=== PATIENT | male | born 1955 | race Caucasian/White ===

== ENCOUNTER 2019-07-02 00:16 | Inpatient (IN) | payer MEDICAID ==
[~2019-07-02] VITALS: Ht 170.2 cm; Wt 96.2 kg
[~2019-07-02 00:16] MED LIST: ASPI81CH43 PO; ATOR20TA50 PO; CAR3125T PO; FURO1TAB33 PO; POTA8TAB2 PO; SACU1TAB PO; TICA90TA PO
[2019-07-02 01:55] LABS: Basophils # (auto) 0 uL; Basophils % (auto) 0.4 % (0.0-2.0); Eosinophils # (auto) 0 uL; Eosinophils % (auto) 0.4 % (0.0-7.0); Hematocrit 39.3 % (41.0-53.0); Hemoglobin 12.9 g/dL (13.5-17.5); Lymphocytes # (auto) 1.2 uL; Mean Corpuscular Hgb Conc. 32.8 g/dL (32.0-36.0); Mean Corpuscular Volume 94.6 fL (80.0-100.0); Monocytes # (auto) 1.4 uL; Monocytes % (auto) 12.4 % (0.0-12.0); Neutrophils # (auto) 8.4 uL; Neutrophils % (auto) 75.8 % (37.0-80.0); Nucleated Red Blood Cells % 0.1 %; Platelet Count (auto) 177 10^3/uL (140-450); Red Blood Cells 4.15 10^6/uL (4.5-5.90); White Blood Cell 11.1 10^3/uL (4.4-10.8)
[2019-07-02 02:18] LABS: Albumin 3.3 g/dL (3.4-5.0); Calcium 8.5 mg/dL (8.5-10.1); Potassium 3.8 mmol/L (3.5-5.1)
[2019-07-02 02:21] LABS: BUN/Creatinine Ratio 21.6
[2019-07-02 02:28] LABS: Bilirubin, Total 0.9 mg/dL (0.2-1.0); Total Protein 6.5 g/dL (6.4-8.2)
[2019-07-02] MEDS ORDERED: ALBUTEROL SULF 2.5 MG/0.5ML(0.5%) NEB SOLN NEB ONE (03:15)
[2019-07-02] MEDS ORDERED: IPRATROPIUM BROM 0.5 MG/2.5ML INH SOL NEB ONE (03:15)
[2019-07-02] MEDS ORDERED: FUROSEMIDE 20 MG/2 ML VIAL IV ONE (03:15)
[2019-07-02] MEDS ORDERED: LEVOFLOXACIN 250MG 50 ML IV ONE (04:00)
[2019-07-02 04:30] LABS: Urine Amorphous Crystal FEW /hpf (None Seen); Urine Bacteria FEW /hpf (None Seen); Urine Blood Negative /uL (Negative); Urine Hyaline Cast FEW /lpf (0 - 2); Urine Mucus FEW (None Seen); Urine Specific Gravity 1.025 (1.001-1.035); Urine WBC 1 /hpf (0 - 3)
[2019-07-02 04:43] LABS: Alcohol, Urine < 3.0 mg/dL (0-5); Amphetamine Screen, Urine NEGATIVE (NEGATIVE); Barbiturate Scree,Urine NEGATIVE (NEGATIVE); Benzodiazephine Screen, Urine NEGATIVE (NEGATIVE); Cannabinoid Screen, Urine NEGATIVE (NEGATIVE); Cocaine Screen, Urine NEGATIVE (NEGATIVE); Opiate Scree,Urine NEGATIVE (NEGATIVE); Phencyclidine Screen, Urine NEGATIVE (NEGATIVE)
[2019-07-02] MEDS ORDERED: ENOXAPARIN SOD 100 MG/1 ML SYRINGE SC ONE (04:45)
[2019-07-02] MEDS ORDERED: NITROGLYCERIN 0.4 MG SL TAB SL PRN (04:45)
[2019-07-02] MEDS ORDERED: ONDANSETRON HCL 4 MG/2 ML VIAL IV PRN (04:45)
[2019-07-02] MEDS ORDERED: MORPHINE SULF INJ 2 MG/ML SYRINGE 1ML IV PRN (04:45)
[2019-07-02] MEDS ORDERED: ALBUTEROL SULF 2.5 MG/0.5ML(0.5%) NEB SOLN NEB PRN (05:15)
[2019-07-02] MEDS: FUROSEMIDE 20 MG/2 ML VIAL IV SCH ×2 (06:08→17:36)
--- NOTE | 2019-07-02 07:58 | NUR ---
Telemetry admit from ER BALDO PELAYO admitted to Telemetry unit. Patient oriented to Tj Benz, primary RN, unit, room, bed, and unit policies regarding patient care and visiting hours. Patient now on continuous telemetry monitoring, tele box #[id number] and telemetry reading on arrival to unit is [id number]. Patient placed on bedside oxygen, weighed by bedscale and encouraged to call if they need something. All questions and concerns addressed, patient verbalized understanding.
[2019-07-02 09:00] VITALS: BP 110/75
[2019-07-02] MEDS: TICAGRELOR 90 MG TAB PO SCH ×2 (10:02→21:23)
[2019-07-02] MEDS: SACUBITRIL-VALSARTAN 24mg/26mg TAB PO SCH ×2 (10:02→21:24)
[2019-07-02] MEDS: PANTOPRAZOLE 40 MG TAB PO SCH (10:02)
[2019-07-02] MEDS: LEVOFLOXACIN 500MG 100 ML IV SCH (10:02)
[2019-07-02] MEDS: ASPirin 81 mg TAB PO SCH (10:03)
--- NOTE | 2019-07-02 11:12 | NUR ---
RT NOTE: NO TX INDICATED AT THIS TIME. NO SIGNS OF RESPIRATORY DISTRESS NOTED. LUNG SOUNDS WERE CLEAR T/O EXCEPT TO THE RIGHT LUNG BASE WHERE THERE WERE CRACKLES. ON RA SPO2 98 HR 78 RR 18. PT AWARE TO CALL FOR TX IF NEED ARISES. WILL CONTINUE TO MONITOR.
--- NOTE | 2019-07-02 12:44 | NUR ---
Left a message to Dr. Shukla asking if patient is OK to have diet orders. Waiting for call back.
--- NOTE | 2019-07-02 12:54 | NUR ---
Orders received from Dr. Shukla,patient may have 2 grams Na diet.
[2019-07-02 13:00] VITALS: BP 113/79
[2019-07-02 13:34] VITALS: BP 110/75
--- NOTE | 2019-07-02 14:20 | NUR ---
Dr. Shukla at bedside, patient is advised. Orders received.
[2019-07-02] MEDS ORDERED: POTASSIUM CHL 20 Meq TABLET PO ONE (14:30)
[2019-07-02] MEDS ORDERED: FUROSEMIDE 40 MG/4 ML VIAL IV ONE (14:30)
[2019-07-02 17:00] VITALS: BP 109/72
--- NOTE | 2019-07-02 18:59 | NUR ---
RESP NOTE: PRN MED NEB ASSESSMENT. PT DENIES SOB NO DISTRESS NOTED AT THIS TIME. POX 96% ON RA. HR 101 RR 20. BS ARE CLEAR AND DIMINISHED. TX NOT GIVEN.
--- NOTE | 2019-07-02 19:30 | NUR ---
OPENING SHIFT NOTE Pt in bed alert and oriented x 4 verbally coherent, able to make needs known. Pt's respiration even and unlabored, denies pain and discomfort at this time. Plan of care discussed, patient verbalized understanding. Family at bedside.
[2019-07-02] MEDS ORDERED: ATORVASTATIN 20 MG TAB PO SCH (22:00)
[2019-07-02 23:28] VITALS: BP 101/70
[2019-07-03 05:45] VITALS: BP 106/62
[2019-07-03] MEDS: FUROSEMIDE 20 MG/2 ML VIAL IV SCH ×2 (06:13→17:51)
[2019-07-03 06:28] LABS: Basophils # (auto) 0 uL; Basophils % (auto) 0.6 % (0.0-2.0); Eosinophils # (auto) 0.3 uL; Eosinophils % (auto) 3.8 % (0.0-7.0); Hematocrit 39.7 % (41.0-53.0); Hemoglobin 13.4 g/dL (13.5-17.5); Lymphocytes # (auto) 0.8 uL; Lymphocytes % (auto) 10.9 % (10.0-50.0); Mean Corpuscular Hemoglobin 31.5 pg (28.0-32.0); Mean Corpuscular Hgb Conc. 33.8 g/dL (32.0-36.0); Monocytes # (auto) 0.9 uL; Monocytes % (auto) 12.6 % (0.0-12.0); Neutrophils # (auto) 5.1 uL; Neutrophils % (auto) 72.1 % (37.0-80.0); Nucleated Red Blood Cells % 0.1 %; Platelet Count (auto) 143 10^3/uL (140-450); Red Blood Cells 4.27 10^6/uL (4.5-5.90); Red Cell Distribution Width 14.9 % (11.8-14.3); White Blood Cell 7.1 10^3/uL (4.4-10.8)
[2019-07-03 06:44] LABS: BUN/Creatinine Ratio 17.5; Calcium 8.2 mg/dL (8.5-10.1); Potassium 3.5 mmol/L (3.5-5.1)
--- NOTE | 2019-07-03 08:00 | NUR ---
Opening Shift Note Assumed care of patient, awake and alert. No S/S of distress/SOB or pain. Instructed on POC and to call for assist PRN, will continue to monitor for changes Q1hr and PRN.
[2019-07-03 09:00] VITALS: BP 103/69
[2019-07-03] MEDS: TICAGRELOR 90 MG TAB PO SCH (09:43)
[2019-07-03] MEDS: ASPirin 81 mg TAB PO SCH (09:43)
[2019-07-03] MEDS: PANTOPRAZOLE 40 MG TAB PO SCH (09:43)
[2019-07-03] MEDS: SACUBITRIL-VALSARTAN 24mg/26mg TAB PO SCH (09:43)
[2019-07-03] MEDS: LEVOFLOXACIN 500MG 100 ML IV SCH (09:43)
--- NOTE | 2019-07-03 11:42 | NUR ---
RT NOTE: WENT TO PTS ROOM TO ASSESS FOR PRN BREATHING TX, PT SITTING UP IN BED, NO S/S OF SOB. HR 95, RR 16, SPO2 96% ON RA, WILL CONTINUE TO MONITOR PT.
[2019-07-03 13:00] VITALS: BP 102/64
--- NOTE | 2019-07-03 16:46 | NUR ---
Discharge planning per consult, patient received orders to resume home health. Referral faxed to [facility] (previously on services as 06.25.19) and per Belen at [facility], they will resume services within 24-48 hours of discharge. Addendum: 07/03/19 at 1648 by ESTHER DOYLE SS Amended: Links added. Addendum: 07/03/19 at 1653 by ESTHER YANIRA SS Patient did not want hospice services at this time and the [facility] program does not services the [place] area. Patient opted to resume services with [facility]. Addendum: 07/03/19 at 1657 by ESTHER DOYLE SS Patient advised he will be in [place] until Saturday, and will then return to [place]. Lamont Mcginnis was notified.
--- NOTE | 2019-07-03 16:47 | NUR ---
assessment Patient is a 63 year old male who is alert and oriented. Prior to admission patient lived home alone and functioned independently. Patient is on service with [facility] health. Patient will need to resume home health on discharge. Patient informed me he will return home with his daughter on discharge if he needs to. Patients PCP is Dr Cabello. Patient verbalized understanding and agreed to discharge plan home. Addendum: 07/06/19 at 1650 by Shagufta KISER Amended: Links added.
[2019-07-03 17:18] VITALS: BP 119/71
[2019-07-03 18:24] VITALS: BP 119/71
--- NOTE | 2019-07-03 18:55 | NUR ---
IV removed, catheter intact, pressure dressing applied. Telemetry box returned to [facility]. Patient is for discharge, discharge papers signed by patient and was handed to him. Waiting for ride to go home. Gave reports to film processing shift supervisor RN.
--- NOTE | 2019-07-03 19:18 | NUR ---
Discharge instructions given as ordered. Encourage to follow up with PMD as instructed. All questions and concerns addressed. Patient verbalized understanding. Medication reconciliation form completed and copy given to patient. IV removed with catheter intact, pressure dressing applied. Telemetry unit returned to [facility]. Patient taken to vehicle via wheelchair with all personal belongings, accompanied by staff and family member. No distress noted at time of departure.
[2019-08-03] MEDS ORDERED: LISI2.5T47 PO (09:17)
== END 2019-07-03 19:17 | disposition home health service (06) | DRG 194 ==
LOC: ER 00:23 → TELE 00:24 → TELE-EAST 07:58
PROVIDERS: ADMIT Nurse Practitioner; ATTEND Internal Medicine Cardiovascular Disease
DX: I13.0 Hypertensive heart and chronic kidney disease with heart failure and stage 1 through stage 4 chronic kidney disease, or unspecified chronic kidney disease (principal); I22.2 Subsequent non-ST elevation (NSTEMI) myocardial infarction; J18.9 Pneumonia, unspecified organism; I42.0 Dilated cardiomyopathy; N18.3 Chronic kidney disease, stage 3 (moderate); Z95.1 Presence of aortocoronary bypass graft; I50.23 Acute on chronic systolic (congestive) heart failure; E78.5 Hyperlipidemia, unspecified; I25.10 Atherosclerotic heart disease of native coronary artery without angina pectoris; J20.9 Acute bronchitis, unspecified; Z91.19 Patient's noncompliance with other medical treatment and regimen; I25.2 Old myocardial infarction; Z82.49 Family history of ischemic heart disease and other diseases of the circulatory system; Z95.5 Presence of coronary angioplasty implant and graft; Z91.013 Allergy to seafood; I21.9 Acute myocardial infarction, unspecified
CPT/HCPCS: 36415; 71045; 80048; 80053; 80307; 81001; 83605; 83880; 84484; 85025; 85379; 87040; 87081; 93005; 94640; 96365; 96372; 96375; G0378; J1956

== ENCOUNTER → 2019-08-11 | Outpatient (CLI) | payer MEDICAID ==
[~2019-08-11] MED LIST changes: +CARV6.25 PO; +LISI2.5T47 PO
[2019-08-11 13:00] VITALS: BP 103/78
--- NOTE | 2019-08-11 13:00 | NUR ---
CHF CLINIC Discharge Instructions See e-MAR for any mediations given with this visit. Patient education given on disease process. Patient verbalized understanding. Previous labs reviewed. Patient discharged in stable condition with after care instructions and follow up appointment. NOTE 6MWT PERFORMED BY MARKUS OLMEDO EKG DONE BY KRISTI BAJWA CARDIODYNAMICS PERFORMED BY MEGHAN OLMEDO AND REVIEWED BY FIONA BAJWA PATIENT MEDICATION LISINOPRIL STOPPED AND PATIENT STARTED ON ENTRESTO 24/26MG DAILY AT BEDTIME.
[2019-08-11 16:10] LABS: Albumin 3.5 g/dL (3.4-5.0); Calcium 8.9 mg/dL (8.5-10.1); Magnesium 2.7 mg/dL (1.6-2.6); Potassium 4.1 mmol/L (3.5-5.1)
[2019-08-11 16:12] LABS: BUN/Creatinine Ratio 19.5; Bilirubin, Total 0.5 mg/dL (0.2-1.0); Total Protein 7.1 g/dL (6.4-8.2)
[2019-08-11 16:21] LABS: Basophils # (auto) 0 uL; Basophils % (auto) 0.9 % (0.0-2.0); Eosinophils # (auto) 0.1 uL; Eosinophils % (auto) 2.7 % (0.0-7.0); Hematocrit 37.5 % (41.0-53.0); Hemoglobin 12.8 g/dL (13.5-17.5); Mean Corpuscular Hemoglobin 31.5 pg (28.0-32.0); Mean Corpuscular Hgb Conc. 34.2 g/dL (32.0-36.0); Monocytes # (auto) 0.6 uL; Monocytes % (auto) 10.8 % (0.0-12.0); Neutrophils # (auto) 3.6 uL; Neutrophils % (auto) 66.6 % (37.0-80.0); Nucleated Red Blood Cells % 0.1 %; Platelet Count (auto) 165 10^3/uL (140-450); Red Blood Cells 4.08 10^6/uL (4.5-5.90); Red Cell Distribution Width 14.4 % (11.8-14.3); White Blood Cell 5.4 10^3/uL (4.4-10.8)
== END | disposition home or self-care (01) ==
LOC: CHF HDHVI 10:31
PROVIDERS: ATTEND Internal Medicine Cardiovascular Disease
DX: C61 Malignant neoplasm of prostate (principal); I50.9 Heart failure, unspecified; E29.1 Testicular hypofunction; K90.9 Intestinal malabsorption, unspecified; E03.9 Hypothyroidism, unspecified; D64.9 Anemia, unspecified; R94.31 Abnormal electrocardiogram [ECG] [EKG]; N18.3 Chronic kidney disease, stage 3 (moderate); Z79.899 Other long term (current) drug therapy
CPT/HCPCS: 36415; 80053; 82306; 83036; 83735; 83880; 84153; 84403; 84443; 85025; 93005; 93701; 94618; G0463

== ENCOUNTER → 2019-08-25 | Outpatient (CLI) | payer MEDICAID ==
[~2019-08-25] MED LIST changes: +CYANOCOBALAMIN (B-12) 1000 MCG/1 ML VIAL IM ONE; +CYANOCOBALAMIN (B-12) 1000 MCG/1 ML VIAL ONE
--- NOTE | 2019-08-25 09:08 | NUR ---
CHF PT ARRIVED AT THE CHF CLINIC FOR THERAPY A/O X 4 0 DISTRESS VSS
--- NOTE | 2019-08-25 10:10 | NUR ---
CHF MED RECONCILIATION PATIENT IS ON ENTRESTO 1 TAB IN AM AND COREG 3.125
[2019-08-25 10:15] VITALS: BP 97/63
--- NOTE | 2019-08-25 10:15 | NUR ---
Discharge Instructions See e-MAR for any mediations given with this visit. Patient education given on disease process. Patient verbalized understanding. Previous labs reviewed. Patient discharged in stable condition with after care instructions and follow up appointment. MEDICATIONS VITAMIN B12 IM LOT # [id number] EXP 11/06
[2019-08-25 12:27] LABS: Basophils # (auto) 0 uL; Basophils % (auto) 0.5 % (0.0-2.0); Eosinophils # (auto) 0.2 uL; Eosinophils % (auto) 2.6 % (0.0-7.0); Hematocrit 39.8 % (41.0-53.0); Hemoglobin 13.4 g/dL (13.5-17.5); Lymphocytes # (auto) 0.8 uL; Lymphocytes % (auto) 12.1 % (10.0-50.0); Mean Corpuscular Hemoglobin 31.7 pg (28.0-32.0); Mean Corpuscular Hgb Conc. 33.7 g/dL (32.0-36.0); Mean Corpuscular Volume 94.1 fL (80.0-100.0); Monocytes # (auto) 0.6 uL; Monocytes % (auto) 9.2 % (0.0-12.0); Neutrophils # (auto) 4.7 uL; Neutrophils % (auto) 75.6 % (37.0-80.0); Platelet Count (auto) 146 10^3/uL (140-450); Red Blood Cells 4.23 10^6/uL (4.5-5.90); Red Cell Distribution Width 15.1 % (11.8-14.3); White Blood Cell 6.2 10^3/uL (4.4-10.8)
[2019-08-25 12:39] LABS: Albumin 3.4 g/dL (3.4-5.0); Potassium 3.8 mmol/L (3.5-5.1)
[2019-08-25 12:49] LABS: Bilirubin, Total 0.7 mg/dL (0.2-1.0); Calcium 8.8 mg/dL (8.5-10.1); Total Protein 7.1 g/dL (6.4-8.2)
== END | disposition home or self-care (01) ==
LOC: CHF HDHVI 09:06
PROVIDERS: ATTEND Internal Medicine Cardiovascular Disease
DX: I13.0 Hypertensive heart and chronic kidney disease with heart failure and stage 1 through stage 4 chronic kidney disease, or unspecified chronic kidney disease (principal); I50.42 Chronic combined systolic (congestive) and diastolic (congestive) heart failure; N18.3 Chronic kidney disease, stage 3 (moderate); R53.83 Other fatigue; I25.10 Atherosclerotic heart disease of native coronary artery without angina pectoris; I25.2 Old myocardial infarction; E78.5 Hyperlipidemia, unspecified; D64.9 Anemia, unspecified; E03.9 Hypothyroidism, unspecified; Z95.1 Presence of aortocoronary bypass graft; Z79.899 Other long term (current) drug therapy
CPT/HCPCS: 36415; 80053; 80061; 83880; 85025; 96372; G0463; J3420

== ENCOUNTER 2019-08-27 23:59 | Inpatient (IN) | payer MEDICAID ==
[~2019-08-27] VITALS: Ht 170.2 cm; Wt 167.2 kg
[~2019-08-27 23:59] MED LIST changes: -CARV6.25 PO; -CYANOCOBALAMIN (B-12) 1000 MCG/1 ML VIAL IM ONE; -CYANOCOBALAMIN (B-12) 1000 MCG/1 ML VIAL ONE; -SACU1TAB PO
[2019-08-28 00:46] LABS: Basophils # (auto) 0.1 uL; Basophils % (auto) 0.7 % (0.0-2.0); Eosinophils # (auto) 0.2 uL; Eosinophils % (auto) 2.3 % (0.0-7.0); Hematocrit 41.2 % (41.0-53.0); Hemoglobin 13.9 g/dL (13.5-17.5); Lymphocytes # (auto) 1.1 uL; Lymphocytes % (auto) 14.7 % (10.0-50.0); Mean Corpuscular Hemoglobin 31.9 pg (28.0-32.0); Mean Corpuscular Hgb Conc. 33.7 g/dL (32.0-36.0); Mean Corpuscular Volume 94.9 fL (80.0-100.0); Monocytes # (auto) 0.8 uL; Monocytes % (auto) 10.2 % (0.0-12.0); Neutrophils # (auto) 5.5 uL; Neutrophils % (auto) 72.1 % (37.0-80.0); Nucleated Red Blood Cells % 0.1 %; Platelet Count (auto) 177 10^3/uL (140-450); Red Blood Cells 4.34 10^6/uL (4.5-5.90); White Blood Cell 7.6 10^3/uL (4.4-10.8)
[2019-08-28 01:01] LABS: INR 1.06 (0.9-1.15); Partial Thromboplastin Time 28.2 sec (23.64-32.05)
[2019-08-28 01:03] LABS: Albumin 3.3 g/dL (3.4-5.0); BUN/Creatinine Ratio 20.2; Calcium 8.7 mg/dL (8.5-10.1); Potassium 4.9 mmol/L (3.5-5.1)
[2019-08-28] MEDS ORDERED: PROMETHAZINE HCL 25 MG/ML 1ML IV ONE (03:45)
[2019-08-28] MEDS ORDERED: FUROSEMIDE 20 MG/2 ML VIAL IV ONE (07:30)
[2019-08-28] MEDS ORDERED: MORPHINE SULF INJ 2 MG/ML SYRINGE 1ML IV PRN (08:30)
[2019-08-28] MEDS ORDERED: NITROGLYCERIN 0.4 MG SL TAB SL PRN (08:30)
[2019-08-28 09:18] LABS: Alcohol, Urine < 3.0 mg/dL (0-5); Amphetamine Screen, Urine NEGATIVE (NEGATIVE); Barbiturate Scree,Urine NEGATIVE (NEGATIVE); Benzodiazephine Screen, Urine NEGATIVE (NEGATIVE); Cannabinoid Screen, Urine NEGATIVE (NEGATIVE); Cocaine Screen, Urine NEGATIVE (NEGATIVE); Opiate Scree,Urine NEGATIVE (NEGATIVE); Phencyclidine Screen, Urine NEGATIVE (NEGATIVE)
[2019-08-28] MEDS ORDERED: FUROSEMIDE 20 MG TAB PO SCH ×2 (10:00→18:00)
[2019-08-28] MEDS: NITROGLYCERIN 0.2MG/HR TOPICAL PATCH TD SCH (10:00)
[2019-08-28 10:30] VITALS: BP 112/71
--- NOTE | 2019-08-28 10:30 | NUR ---
RECIEVED PATIENT FROM ER. RECIEVED REPORT FROM GARETT JOSEPH. PATIENT RESTING IN BED. NO S/S OF DISTRESS NOTED AT THIS TIME. PATIENT ORIENTED TO GARETT WALKER AND HOSPITAL ROOM INCLUDING BED, CALL LIGHT, AND HOSPITAL CPOLICY. PATIENT VERBALZIED UNDERSTANDING. PATIENT ON TELE MONITOR 66. PATIENT DENIES ANY CHEST PAIN AT THIS MOMENT. PATIENT UPDATED ON POC. ALL QUESTIONS ANSWERED. BED IN LOWEST LOCKED POSITION WITH CALL LIGHT WITHIN REACH.
[2019-08-28] MEDS ORDERED: ENOXAPARIN SOD 80 MG/0.8ML SYRINGE SC ONE (10:45)
[2019-08-28] MEDS: POTASSIUM CHLORIDE 8 MEQ TAB PO SCH ×2 (11:29→21:26)
[2019-08-28] MEDS: CARVEDILOL 3.125 MG TAB PO SCH (11:30)
[2019-08-28] MEDS: TICAGRELOR 90 MG TAB PO SCH ×2 (11:30→21:25)
[2019-08-28] MEDS: ENALAPRIL MALEATE 2.5 MG TAB PO SCH (11:31)
[2019-08-28] MEDS: ASPirin 81 mg TAB PO SCH (11:31)
[2019-08-28] MEDS ORDERED: SACU1TAB PO (12:47)
[2019-08-28 13:00] VITALS: BP 112/71
--- NOTE | 2019-08-28 13:30 | NUR ---
BRIGITTE ANDERSON REGARDING ELEVATED TROPONIN. AWAITING CALL BACK.
--- NOTE | 2019-08-28 14:10 | NUR ---
Cecilio ANDERSON AT BEDSIDE.
[2019-08-28] MEDS: SODIUM CHLOR 0.9% PF (SALINE LOCK) 10ML VIAL/SYR IV SCH ×2 (14:34→22:56)
[2019-08-28] MEDS ORDERED: INFLUENZA QUAD 2019-2020 0.5ml SYRG IM ONE (16:00)
--- NOTE | 2019-08-28 19:00 | NUR ---
CARE ENDORSED TO RN BERNICE. PATIENT IN NO S/S OF DISTRESS AT THIS TIME.
--- NOTE | 2019-08-28 19:30 | NUR ---
Opening Shift Note Assumed care of patient, awake and alert x4. Patient denies pain at this time. No S/S of distress or shortness of breath noted at this time. Instructed on POC and to callfor assist PRN, will continue to monitor for changes Q1hr and PRN. Addendum: 08/28/19 at 2052 by BERNICE CASTRO RN RN Opening Shift Note Assumed care of patient, awake and alert x4. Patient denies pain at this time. No S/S of distress or shortness of breath noted at this time. Instructed on plan of care and to call for assistance as needed. Bed is locked in lowest position, side rails x 2 are up, call light is within reach, and bed alarm is on.
[2019-08-28] MEDS: ATORVASTATIN 20 MG TAB PO SCH (21:29)
[2019-08-28] MEDS ORDERED: FURO1TAB33 PO ×2 (21:33)
[2019-08-28] MEDS ORDERED: CARV6.25 PO ×2 (21:33)
[2019-08-28 22:00] VITALS: BP 107/62
--- NOTE | 2019-08-28 22:12 | NUR ---
HOSPITALIST PAGED RE: NIGHT TIME MEDICATION Hospitalist paged regarding night time medication. Patient reports he takes Lasix 20mg PO in the morning and in the evening at home. Patient is requesting his night time Lasix. Awaiting call back.
--- NOTE | 2019-08-28 22:50 | NUR ---
HOSPITALIST RETURNED CALL RE: EVENING MEDICATION Notified SHOSHANA Humphries that patient reports he takes Lasix 20mg PO BID at home and is requesting his evening dose. Received orders from SHOSHANA Humphries to resume patients Lasix 20mg PO tonight. Order read back and verified. Will carry out order as received.
[2019-08-28] MEDS ORDERED: FUROSEMIDE 20 MG TAB PO ONE (23:00)
--- NOTE | 2019-08-29 02:12 | NUR ---
Hospitalist paged re: shortness of breath Hospitalist paged regarding shortness of breath. Patient is complaining of shortness of breath. Patients SPO2: is 95% on room air, lungs are clear to auscultation, and patient noted to have non pitting edema to lower extremities. Patient was given Lasix 20mg PO at approximately 2315. Patients urine output since 2300 has been 100mls. Awaiting call back.
[2019-08-29] MEDS ORDERED: ALBUTEROL SULF 2.5 MG/0.5ML(0.5%) NEB SOLN NEB PRN (02:45)
--- NOTE | 2019-08-29 02:45 | NUR ---
HOSPITALIST RETURNED CALL RE: SHORTNESS OF BREATH Notified HAND CIGAR MAKER Humphries that patient is complaining of shortness of breath. HAND CIGAR MAKER Humphries made aware that patients lungs are clear to auscultation, non-pitting edema noted to bilateral lower extremities, and patients SPO2 is 95% on room air. Orders for Albuterol 2.5mg every 6 hours as needed for shortness of breath received. Order read back and verified. Will carry out order as received.
[2019-08-29 02:57] VITALS: BP 100/62
--- NOTE | 2019-08-29 03:17 | NUR ---
AT BEDSIDE FOR PRN MED NEB ASSESSMENT. NO DISTRESS NOTED. PT DOES STATE HE FEELS SOB BUT DUE IT IS DUE TO HIS FLUID OVERLOAD. RA POX 97% HR 68 RN AT BEDSIDE BS ARE MOSTLY CLEAR BUT PT DOES HAVE VERY FAINT CRACKLES IN THE BASES AUDIBLE ON INSPIRATION. PT DECLINES MEDNEB AND STATES UNDERSTANDING THAT HE MAY PAGE IF HE WOULD LIKE ONE.
--- NOTE | 2019-08-29 04:00 | NUR ---
HOSPITALIST PAGED RE: SHORTNESS OF BREATH Hospitalist paged regarding shortness of breath. Patient reports he is having a hard time breathing. Patients lung sounds upon auscultation are clear for bilateral upper lobes and crackles for bilateral lower lobes. Patients SPO2: is 95% on room air. Awaiting call back.
--- NOTE | 2019-08-29 04:38 | NUR ---
HOSPITALIST RETURNED CALL RE: SHORTNESS OF BREATH Hospitalist returned call re: shortness of breath. Notified TECHNICIAN CHEMICAL CLEANING Humphries that patient continues to complain of shortness of breath and that lung sounds upon auscultation are clear for upper bilateral lobes and crackles for lower bilateral lobes. TECHNICIAN CHEMICAL CLEANING Humphries aware that patients SPO2 is 95% on room air and patient refused breathing treatment. Orders for Lasix 40mg IV now, hold scheduled 0600 Lasix 20mg PO, and order for chest x-ray received. Order read back and verified. Will carry out orders as received.
[2019-08-29] MEDS ORDERED: FUROSEMIDE 40 MG/4 ML VIAL IV ONE (04:45)
[2019-08-29] MEDS: FUROSEMIDE 20 MG TAB PO SCH ×2 (05:19→18:17)
[2019-08-29] MEDS: SODIUM CHLOR 0.9% PF (SALINE LOCK) 10ML VIAL/SYR IV SCH ×2 (05:20→14:47)
[2019-08-29 05:46] VITALS: BP 102/73
--- NOTE | 2019-08-29 07:30 | NUR ---
OPENING SHIFT NOTE PATIENT RESTING IN BED HIGH FOWLERS. RESPIRATIONS EVEN AND UNLABORED. NO S/S OF DISTRESS NOTED AT THIS TIME. PATIENT DENIES ANY CP OR SOB AT THIS TIME. PATIENT UPDATED ON POC. ALL QUESTIONS ANSWERED. BED IN LOWEST LOCKED POSITION WITH CALL LIGHT WITHIN REACH. WILL CONTINUE CARE.
[2019-08-29 09:00] VITALS: BP 106/67
[2019-08-29] MEDS: NITROGLYCERIN 0.2MG/HR TOPICAL PATCH TD SCH (10:00)
[2019-08-29] MEDS: ENOXAPARIN SOD 40 MG/0.4 ML SYRINGE SC SCH (10:16)
[2019-08-29] MEDS: TICAGRELOR 90 MG TAB PO SCH ×2 (10:16→21:38)
[2019-08-29] MEDS: CARVEDILOL 3.125 MG TAB PO SCH (10:17)
[2019-08-29] MEDS: ASPirin 81 mg TAB PO SCH (10:21)
[2019-08-29] MEDS: POTASSIUM CHLORIDE 8 MEQ TAB PO SCH ×2 (10:21→21:39)
[2019-08-29] MEDS: ENALAPRIL MALEATE 2.5 MG TAB PO SCH (10:21)
[2019-08-29 13:00] VITALS: BP 95/67
--- NOTE | 2019-08-29 15:03 | NUR ---
BRIGITTE MAC REGARDING PATIENT ROUNDS. AWAITING CALL BACK.
--- NOTE | 2019-08-29 15:15 | NUR ---
RECEIVED CALL BACK FROM Cecilio SEGURA REGARDING ROUNDING ON PATIENT. STATED HIS GROUP WOULDN'T ROUND ON THE PATIENT FOR TODAY THEY WERE NOT MADE AWARE PATIENT WAS ASSIGNED TO THIS GROUP. STATED HIS GROUP WOULD SEE THEM TOMORROW.
--- NOTE | 2019-08-29 15:23 | NUR ---
BRIGITTE SRIVASTAVA REGARDING NO ASSIGNED HOSPITALIST. AWAITING CALL BACK.
--- NOTE | 2019-08-29 16:35 | NUR ---
BRIGITTE ANDERSON REGARDING PATIENT HAVING NO HOSPITALIST FOR THE DAY, CURRENT LABS, AND TESTS DONE. INFORMED M.D. OF EPISODE OF SOB LAST NIGHT. WELL REGARDING STARTING HOME MEDICATIONS. AWAITING CALL BACK.
[2019-08-29 17:00] VITALS: BP 104/68
--- NOTE | 2019-08-29 17:20 | NUR ---
RECIEVED CALL BACK FROM Cecilio ANDERSON. STATED OKAY TO RESTART HOME MEDICATION. WILL CONTINUE CARE.
[2019-08-29] MEDS ORDERED: FUROSEMIDE 20 MG TAB PO SCH (18:00)
--- NOTE | 2019-08-29 19:04 | NUR ---
RT NOTE PT WAS SEEN BY RT FOR PRN HHN TX. PT STATES HE SOMETIMES GETS SOB BUT IT IS FROM HIS HEART NOT LUNGS. NO SOB OR DISTRESS AT THIS TIME. HR 97, RR 16, BS CTA, POX 97% ON R.A/A. NO PRN TX INDICATED AT THIS TIME. CONT ORDERED Addendum: 08/29/19 at 1919 by Carly Borjas RT Amended: Links added.
--- NOTE | 2019-08-29 19:35 | NUR ---
Opening Shift Note Assumed care of patient, awake and alert x4. Patient denies pain at this time. No S/S of distress or shortness of breath noted at this time. Patients SPO2 is 96% on room air. Instructed on plan of care and to call for assistance as needed, patient verbalized understanding. Bed is locked in lowest position, side rails x 2 are up, call light is within reach, and bed alarm is on.
[2019-08-29] MEDS: ATORVASTATIN 20 MG TAB PO SCH (21:38)
[2019-08-29 22:00] VITALS: BP 99/68
[2019-08-30 05:00] VITALS: BP 92/61
[2019-08-30] MEDS: SODIUM CHLOR 0.9% PF (SALINE LOCK) 10ML VIAL/SYR IV SCH ×3 (05:39→14:34)
[2019-08-30] MEDS: FUROSEMIDE 20 MG TAB PO SCH (05:45)
--- NOTE | 2019-08-30 07:30 | NUR ---
OPENING SHIFT NOTE PATIENT RESTING IN BED. RESPIRATIONS EVEN AND UNLABORED. NO S/S OF DISTRESS NOTED AT THIS TIME. PATIENT UPDATED ON POC. ALL QUESTIONS ANSWERED. BED IN LOWEST LOCKED POSITION WITH CALL LIGHT WITHIN REACH.
[2019-08-30 08:30] VITALS: BP 112/85
[2019-08-30] MEDS: ENOXAPARIN SOD 40 MG/0.4 ML SYRINGE SC SCH (09:45)
[2019-08-30] MEDS: ASPirin 81 mg TAB PO SCH (09:45)
[2019-08-30] MEDS: TICAGRELOR 90 MG TAB PO SCH (09:45)
[2019-08-30] MEDS: POTASSIUM CHLORIDE 8 MEQ TAB PO SCH (09:46)
[2019-08-30] MEDS: NITROGLYCERIN 0.2MG/HR TOPICAL PATCH TD SCH (09:46)
[2019-08-30] MEDS ORDERED: SACUBITRIL-VALSARTAN 24mg/26mg TAB PO SCH (10:00)
--- NOTE | 2019-08-30 10:00 | NUR ---
FAXED PAPERWORK TO [facility] PER [employer]NAG[employer].
--- NOTE | 2019-08-30 10:15 | NUR ---
Cecilio SEGURA AT BEDSIDE. AWARE OF PATIENT STATUS. RECIEVED ORDER TO DISCHARGE PENDING VENOUS ULTRASOUND AND CLEARANCE FROM DRUM CLEANER MONICA.
[2019-08-30] MEDS ORDERED: SACU1TAB PO ×2 (11:05)
--- NOTE | 2019-08-30 11:08 | NUR ---
o/c shanika spoke to Kelvin at [facility] and he will contact o/c CM to contact al for safety evjuan
--- NOTE | 2019-08-30 11:49 | NUR ---
LESLIE MORALES TO D/C PATIENT.
[2019-08-30 12:30] VITALS: BP 102/77
--- NOTE | 2019-08-30 13:19 | NUR ---
o/c note I recalled [facility] since I have not heard back from [facility], he is to recall
--- NOTE | 2019-08-30 13:25 | NUR ---
o/c note I lambert Bettencourt fax HH packet to [facility] [phone] at approx 1000hrs
--- NOTE | 2019-08-30 13:35 | NUR ---
RT NOTE: NO TX INDICATED AT THIS TIME. NO SIGNS OF RESPIRATORY DISTRESS . LUNG SOUNDS CLEAR T/O. ON RA SPO2 94 HR 76 RR 16. PT AWARE TO HAVE RESPIRATORY PAGED IF NEED FOR TX ARISES. WILL CONTINUE TO MONITOR.
--- NOTE | 2019-08-30 14:04 | NUR ---
o/c note I spoke to Danyell at [facility] and start of care will begin tomorrow for home safety eval
--- NOTE | 2019-08-30 14:10 | NUR ---
PER WOOD FINISHER APPRENTICE NOTE. PATIENT HOME HEALTH SET-UP.
[2019-08-30 16:56] VITALS: BP 100/80
--- NOTE | 2019-08-30 17:30 | NUR ---
PER PHARMACIST. WE ARE ON BACK ORDER FOR FLU VACCINE. HAVE PATIENT SEE PCP FOR FLU VACCINATION.
--- NOTE | 2019-08-30 17:30 | NUR ---
SPOKE TO [facility] REGARDING MEDICATION MReina SEGURA CALLED IN. STATED ENTRESTO WAS NOT COVERED BY INSURANCE AND NEEDS PRIOR AUTHORIZATION. INFORMED PATIENT. PER PATIENT HE STILL HAS A WEEK AND A HALF SUPPLY OF ENTRESTO AND THAT HE WOULD TALK TO HIS PCP MARISA FOR A PRESCRIPTION.
--- NOTE | 2019-08-30 17:50 | NUR ---
Discharge instructions given as ordered. Encourage to follow up with PMD as instructed. Instructed to follow up with labs and all doctors visits as ordered. All questions and concerns addressed. Patient verbalized understanding. IV removed with catheter intact, pressure dressing applied. Telemetry unit returned to ICU. Patient taken to vehicle via wheelchair with all personal belongings, accompanied by staff and family member. No distress noted at time of departure.
[2019-08-30] MEDS ORDERED: CARVEDILOL 3.125 MG TAB PO SCH (22:00)
[2019-08-31] MEDS ORDERED: SACUBITRIL-VALSARTAN 24mg/26mg TAB PO SCH (10:00)
[2019-09-08] MEDS ORDERED: CAR3125T PO (12:53)
== END 2019-08-30 17:50 | disposition home health service (06) | DRG 194 ==
LOC: ER 08-28 00:02 → TELE 08-28 00:03 → TELE-WESTW 08-28 11:35
PROVIDERS: ADMIT Internal Medicine; ATTEND Internal Medicine
DX: I13.0 Hypertensive heart and chronic kidney disease with heart failure and stage 1 through stage 4 chronic kidney disease, or unspecified chronic kidney disease (principal); I95.9 Hypotension, unspecified; N17.9 Acute kidney failure, unspecified; N18.3 Chronic kidney disease, stage 3 (moderate); Z95.1 Presence of aortocoronary bypass graft; Z68.43 Body mass index [BMI] 50.0-59.9, adult; I25.10 Atherosclerotic heart disease of native coronary artery without angina pectoris; I50.43 Acute on chronic combined systolic (congestive) and diastolic (congestive) heart failure; E78.5 Hyperlipidemia, unspecified; I25.5 Ischemic cardiomyopathy; Z82.49 Family history of ischemic heart disease and other diseases of the circulatory system; Z95.5 Presence of coronary angioplasty implant and graft; I25.2 Old myocardial infarction; Z91.013 Allergy to seafood
CPT/HCPCS: 36415; 71045; 71046; 78582; 80053; 80307; 82550; 83880; 84484; 85025; 85379; 85610; 85652; 85730; 93005; 93970; 96374; 96375; G0378

== ENCOUNTER → 2019-09-01 | Outpatient (CLI) | payer MEDICAID ==
[~2019-09-01] MED LIST changes: -CAR3125T PO; +CARV6.25 PO; -LISI2.5T47 PO; +SACU1TAB PO
[2019-09-01 09:00] VITALS: BP 103/69
--- NOTE | 2019-09-01 09:00 | NUR ---
IN TO CLINIC FOR EVALUATION POST HOSPITALIZATION. WITHOUT DISTRESS OR DISCOMFORT. VS WNL.
--- NOTE | 2019-09-01 09:30 | NUR ---
LABS DRAWN AND SENT FOR STAT RESULTS.
--- NOTE | 2019-09-01 10:00 | NUR ---
MED REC DONE AND VERIFIED. HOSPITAL COURSE REVIEWED AND EDUCATION DISCUSSED WITH PATIENT. REVIEWED WATER AND SODIUM RESTRICTION AND DIET MANAGEMENT. USED DISCUSSION AND WRITTEN MATERIALS FOR EDUCATION. PT REPORTS GOOD COMPLIANCE WITH HOME MANAGEMENT OF WATER AND SODIUM RESTRICTIONS AND FOLLOWING CARDIAC DIET. SHOWED A LIST OF DAILY WEIGHTS WELL BLOOD PRESSURE MONITORING WHICH PT KEEPS AVAILABLE ON HIS PHONE FOR REFERENCE.
[2019-09-01 10:19] LABS: Basophils # (auto) 0.1 uL; Basophils % (auto) 0.8 % (0.0-2.0); Eosinophils # (auto) 0.2 uL; Eosinophils % (auto) 2.6 % (0.0-7.0); Hematocrit 42.2 % (41.0-53.0); Lymphocytes # (auto) 0.7 uL; Lymphocytes % (auto) 10.3 % (10.0-50.0); Mean Corpuscular Hemoglobin 31.8 pg (28.0-32.0); Mean Corpuscular Hgb Conc. 33.3 g/dL (32.0-36.0); Mean Corpuscular Volume 95.3 fL (80.0-100.0); Monocytes # (auto) 0.6 uL; Monocytes % (auto) 8.3 % (0.0-12.0); Neutrophils # (auto) 5.6 uL; Nucleated Red Blood Cells % 0.2 %; Platelet Count (auto) 176 10^3/uL (140-450); Red Blood Cells 4.42 10^6/uL (4.5-5.90); Red Cell Distribution Width 16.8 % (11.8-14.3); White Blood Cell 7.2 10^3/uL (4.4-10.8)
[2019-09-01 10:26] LABS: Albumin 3.3 g/dL (3.4-5.0); BUN/Creatinine Ratio 17.7; Calcium 8.7 mg/dL (8.5-10.1); Potassium 3.9 mmol/L (3.5-5.1)
[2019-09-01 10:29] LABS: Bilirubin, Total 0.9 mg/dL (0.2-1.0); Total Protein 6.8 g/dL (6.4-8.2)
[2019-09-01 11:19] LABS: INR 1.05 (0.9-1.15); Partial Thromboplastin Time 27.9 sec (23.64-32.05)
--- NOTE | 2019-09-01 11:30 | NUR ---
ALL LABS RETURNED AND REVIEWED WITH CLINIC PROVIDER. FOLLOWED WITH PATIENT REVIEW. PT TO INCREASE FLUID INTAKE TODAY AND RETURN TO CLINIC TOMORROW FOR ADDITIONAL LABS AND MD FOLLOWUP. REPEAT BACK INSTRUCTIONS OBTAINED. DISCHARGED TO SELF CARE IN NO DISTRESS OR DISCOMFORT. VS WNL.
[2019-09-01 11:40] VITALS: BP 102/69
[2019-09-01 11:59] LABS: Phosphorus 3.7 mg/dL (2.5-4.90)
== END | disposition home or self-care (01) ==
LOC: CHF HDHVI 09:18
PROVIDERS: ATTEND Internal Medicine Cardiovascular Disease
DX: I50.9 Heart failure, unspecified (principal); D64.9 Anemia, unspecified; R06.02 Shortness of breath
CPT/HCPCS: 36415; 71046; 80053; 83880; 84100; 85025; 85610; 85730; G0463

== ENCOUNTER → 2019-09-02 | Outpatient (CLI) | payer MEDICAID ==
[~2019-09-02] MED LIST changes: +CAR3125T PO
[2019-09-02 09:30] VITALS: BP 91/61
--- NOTE | 2019-09-02 09:30 | NUR ---
IN TO CLINIC FOR FOLLOWUP FROM LABS YESTERDAY. REPEAT LABS DRAWN AND SENT FOR STAT RESULTS.
[2019-09-02 10:47] LABS: Potassium 4.4 mmol/L (3.5-5.1)
[2019-09-02 11:30] VITALS: BP 98/64
--- NOTE | 2019-09-02 11:30 | NUR ---
RESULTS RETURNED. DR ANDERSON REVIEWED LABS AND ORDERS RECIEVED. PLAN FOR MUGA SCAN AND AICD PLACEMENT. PT REPORTS THAT HE TOOK IN 1800 ML OF FLUID YESTERDAY AND THAT HE FELT FULL. PT ALSO REPORTS THAT HE HAD A LOW PULSE PRESSURE AT 10 LAST NIGHT, WITH A READING OF 72/60. HE FELT 'FUNNY' AND THAT PROMPTED HIM TO CHECK HIS BLOOD PRESSURE. MEDICATION REVIEWED. PER MD, PT TO DECREASE HIS COREG TO 3.125 MG AT HS ONLY. CONTINUE ENTRESTRO IN THE AM AND CONTINUE OTHER MEDICATIONS ORDERS. JUST REDUCE THE COREG TO 3.125 AT HS (INSTEAD OF 6.25 AT HS). REPEAT BACK INSTRUCTIONS OBTAINED. DISCHARGED TO SELF CARE IN NO DISTRESS OR DISCOMFORT.
== END | disposition home or self-care (01) ==
LOC: CHF HDHVI 09:07
PROVIDERS: ATTEND Internal Medicine Cardiovascular Disease
DX: I13.0 Hypertensive heart and chronic kidney disease with heart failure and stage 1 through stage 4 chronic kidney disease, or unspecified chronic kidney disease (principal); I50.42 Chronic combined systolic (congestive) and diastolic (congestive) heart failure; N18.3 Chronic kidney disease, stage 3 (moderate); I21.9 Acute myocardial infarction, unspecified; I25.10 Atherosclerotic heart disease of native coronary artery without angina pectoris; I25.2 Old myocardial infarction; R94.4 Abnormal results of kidney function studies; E03.9 Hypothyroidism, unspecified; E87.6 Hypokalemia; E78.5 Hyperlipidemia, unspecified; Z95.1 Presence of aortocoronary bypass graft; Z95.5 Presence of coronary angioplasty implant and graft; Z79.899 Other long term (current) drug therapy
CPT/HCPCS: 36415; 82565; 84132; 84520; G0463

== ENCOUNTER → 2019-09-04 | Outpatient (CLI) | payer MEDICAID ==
[~2019-09-04] VITALS: Ht 170.2 cm; Wt 73.0 kg
== END | disposition home or self-care (01) ==
LOC: Rad HDHVI 08:55
PROVIDERS: ATTEND Internal Medicine Cardiovascular Disease
DX: I13.0 Hypertensive heart and chronic kidney disease with heart failure and stage 1 through stage 4 chronic kidney disease, or unspecified chronic kidney disease (principal); I50.43 Acute on chronic combined systolic (congestive) and diastolic (congestive) heart failure; N18.3 Chronic kidney disease, stage 3 (moderate); I25.10 Atherosclerotic heart disease of native coronary artery without angina pectoris; I25.5 Ischemic cardiomyopathy; I25.2 Old myocardial infarction; R07.9 Chest pain, unspecified; R06.02 Shortness of breath; E78.5 Hyperlipidemia, unspecified; E03.9 Hypothyroidism, unspecified; Z95.1 Presence of aortocoronary bypass graft; Z95.5 Presence of coronary angioplasty implant and graft; Z95.820 Peripheral vascular angioplasty status with implants and grafts
CPT/HCPCS: 78472; A9505; 96374; 96375

== ENCOUNTER → 2019-09-08 | Outpatient (CLI) | payer MEDICAID ==
[2019-09-08 15:46] LABS: Basophils # (auto) 0 uL; Basophils % (auto) 0.5 % (0.0-2.0); Eosinophils # (auto) 0.1 uL; Eosinophils % (auto) 1.6 % (0.0-7.0); Hematocrit 41.7 % (41.0-53.0); Hemoglobin 13.8 g/dL (13.5-17.5); Lymphocytes # (auto) 0.7 uL; Lymphocytes % (auto) 10.6 % (10.0-50.0); Mean Corpuscular Hemoglobin 32.1 pg (28.0-32.0); Mean Corpuscular Volume 97.4 fL (80.0-100.0); Monocytes # (auto) 0.6 uL; Monocytes % (auto) 9.7 % (0.0-12.0); Neutrophils % (auto) 77.6 % (37.0-80.0); Nucleated Red Blood Cells % 0.1 %; Platelet Count (auto) 165 10^3/uL (140-450); Red Blood Cells 4.28 10^6/uL (4.5-5.90); Red Cell Distribution Width 17.4 % (11.8-14.3); White Blood Cell 6.5 10^3/uL (4.4-10.8)
[2019-09-08 16:09] LABS: BUN/Creatinine Ratio 21.3; Calcium 8.3 mg/dL (8.5-10.1); Potassium 4.2 mmol/L (3.5-5.1)
[2019-09-08 16:25] LABS: INR 1.02 (0.9-1.15); Partial Thromboplastin Time 30.5 sec (23.64-32.05)
== END | disposition home or self-care (01) ==
LOC: Rad HDHVI 11:02
PROVIDERS: ATTEND Internal Medicine Cardiovascular Disease
DX: Z01.812 Encounter for preprocedural laboratory examination (principal)
CPT/HCPCS: 36415; 71046; 80048; 85025; 85610; 85730

== ENCOUNTER → 2019-09-10 | Outpatient (CLI) | payer MEDICAID ==
[~2019-09-10] MED LIST changes: -CARV6.25 PO
[2019-09-10 09:45] VITALS: BP 114/77
--- NOTE | 2019-09-10 09:45 | NUR ---
PT. TO CHF CLINIC FOR EVAL. PT. WAS AT [facility] FOR SCHEDULED AICD IMPLANTATION, BUT HAS NOT BEEN OFF OF HIS BRILLINTA FOR SUFFICIENT TIME. CARDIODYNAMICS ORDERS RECEIVED AND CARRIED OUT. PT. HAS BEEN KEEPING A VERY METICULOUS LOG OF HIS VITALS ON DAILY BASIS AND STILL HAS BEEN UNABLE TO INCREASE HIS ENTRESTO 24/26MG TO BID HOPED. HIS CARVEDILOL WAS INCREASED TO 6.25MG IN PM AND DOING ENTRESTO IN AM WITH BLOOD PRESSURES FLUCTUATING BETWEEN 94-110 SYSTOLICALLY. PT. WITH KNOWN CRI, BUT SERUM CREATININE IMPROVING TO 1.69 FROM 2.03 IN LAS 10 DAYS. ALSO PER PT, HE STATES THAT HE NEEDS 2 MORE STENTS AFTER ICD IMPLANTATION.
[2019-09-10 11:30] VITALS: BP 110/70
--- NOTE | 2019-09-10 11:30 | NUR ---
Discharge Instructions See e-MAR for any mediations given with this visit. Patient education given on disease process. Patient verbalized understanding. Previous labs reviewed. Patient discharged in stable condition with after care instructions and follow up appointment. NOTE: PT WAS INSTRUCTED TO CONTINUE TO HOLD BRILLINTA AND ASA PER ICD IMPLANTATION ORDERS. PT. INSTRUCTED HE MAY HAVE A LIGHT BKFST ON MORNING OF 09/15 BEFORE 0800, AND TO BE AT [facility] AT 11:30 09/15 FOR PROCEDURE. ALL QUESTIONS ANSWERED. PT. DC'D STABLE.
== END | disposition home or self-care (01) ==
LOC: CHF HDHVI 09:48
PROVIDERS: ATTEND Internal Medicine Cardiovascular Disease
DX: Z01.810 Encounter for preprocedural cardiovascular examination (principal); I11.0 Hypertensive heart disease with heart failure; I50.23 Acute on chronic systolic (congestive) heart failure; I43 Cardiomyopathy in diseases classified elsewhere
CPT/HCPCS: 83880; 93701; G0463